=== PATIENT | male | born 1940 | race Caucasian/White ===

== ENCOUNTER 2021-05-20 08:19 | Inpatient (IN) | payer MEDICARE ==
[~2021-05-20] VITALS: Ht 172.7 cm; Wt 99.5 kg
--- NOTE | 2021-05-20 08:42 | PHYS DOC ---
Past Medical History Past Medical History: CAD, Diabetes-Type II, High Cholesterol, Heart Disease, Hypertension General Adult EDM: Chief Complaint: CHEST PAIN-CARDIAC NATURE HPI: HPI: Patient is a 80-year-old male presenting via POV for chest discomfort. Reports onset was approximately 2 weeks ago shortly after tooth extraction. Reports he has had generalized "gas pains" that are often substernal and/or over right parasternal border and do not radiate. He has been taking Tums, Motrin and Tylenol intermittently with mild relief in symptoms. Nothing known appears to make worse. Patient denies any nilda pain, just admits he feels "blah", fatigu ed and tired during episodes. Timing of symptoms have been inconsistent since onset but have increased in frequency. Reports in past 48 hours he has had several episodes that have occurred with and without physical exertion. Episodes typically last a few minutes to hours. Last episode was this morning which concerned and daughter and so decision was made to bring in patient for evaluation. Patient does have history of noninsulin-dependent type 2 diabetes, coronary artery disease status post x2 stents placed in 2010, reports last outpatient stress test/echocardiogram was performed a few years ago. He is on 81 mg aspirin daily in addition to other GDMT for his comorbid conditions. No prior history of pulmonary embolism or DVT. Denies tobacco, alcohol or illicit drug use. All of his outpatient care is managed in [place] where he lives permanently Review of Systems: Review of Systems: Fourteen body systems of review of systems have been reviewed. See HPI for pertinent positives and negative responses, other valiente all other systems are negative, non-pertinent or non-contributory Heart Score: C/O Chest Pain: Yes HEART Score for Chest Pain: HEART Score for Chest Pain Response (Comments) Value History Moderately Suspicious 1 ECG Normal 0 Age > 65 2 Risk Factors >3 Risk Factors or Hx CAD 2 Troponin < Normal Limit 0 Total 5 Risk Factors: Risk Factors: DM, Current or recent (<one month) smoker, HTN, HLP, family history of CAD, obesity. Risk Scores: Score 0 - 3: 2.5% MACE over next 6 weeks - Discharge Home Score 4 - 6: 20.3% MACE over next 6 weeks - Admit for Clinical Observation Score 7 - 10: 72.7% MACE over next 6 weeks - Early Invasive Strategies Current Medications: Current Medications Medications (Trade) Dose Ordered Sig/Darrin Start Time Stop Time Status Last Admin Dose Admin Aspirin (Aspirin Chewable) 162 mg 1X ONCE 05/20/21 09:00 05/20/21 09:01 DC 05/20/21 08:42 Multi-Ingredient Mouthwash/Gargle (Gi Cocktail) 20 ml 1X ONCE 05/20/21 09:00 05/20/21 09:06 DC 05/20/21 09:01 Nitroglycerin (Nitrostat) 0.4 mg PRN Q5MIN PRN 05/20/21 08:45 05/21/21 08:44 05/20/21 08:50 Sodium Chloride 500 ml @ 500 mls/hr 1X ONCE 05/20/21 09:00 05/20/21 09:59 DC 05/20/21 09:05 Allergies: Allergies: Allergies Coded Allergies Type Severity Reaction Last Updated Verified No Known Drug Allergies 05/20/21 No Physical Exam: PE: Constitutional: Well developed, well nourished, no acute distress, non-toxic appearance. HENT: Normocephalic, atraumatic, bilateral external ears normal, oropharynx moist, no oral exudates, nose normal. Hard of hearing Eyes: PERRLA, EOMI, conjunctiva normal, no discharge. Neck: Normal range of motion, no tenderness, supple, no stridor. Cardiovascular: Heart rate regular per monitor Lungs & Thorax: No respiratory distress or accessory muscle use, bilateral chest rise Abdomen: Abdomen soft, non-tender, bowel sounds present in all quadrants, no guarding or rebound, nonacute abdomen. Skin: Warm, dry, no erythema, no rash. Back: No tenderness, no CVA tenderness. Extremities: No tenderness, no cyanosis, no clubbing, ROM intact, no edema. Neurologic: Alert and oriented X 3, grossly normal motor & sensory function, no focal deficits noted. Psychologic: Affect normal, judgement normal, mood normal. Current Patient Data: Labs: Laboratory Tests Test 05/20/21 08:28 White Blood Count 9.0 x10^3/uL Red Blood Count 4.88 x10^6/uL Hemoglobin 15.1 g/dL Hematocrit 43.5 % Mean Corpuscular Volume 89 fL Mean Corpuscular Hemoglobin 31 pg Mean Corpuscular Hemoglobin Concent 35 g/dL Red Cell Distribution Width 13.8 % Platelet Count 198 x10^3/uL Neutrophils (%) (Auto) 71 % Lymphocytes (%) (Auto) 14 % Monocytes (%) (Auto) 8 % Eosinophils (%) (Auto) 6 % Basophils (%) (Auto) 2 % Neutrophils # (Auto) 6.3 x10^3/uL Lymphocytes # (Auto) 1.3 x10^3/uL Monocytes # (Auto) 0.7 x10^3/uL Eosinophils # (Auto) 0.5 x10^3/uL Basophils # (Auto) 0.1 x10^3/uL D-Dimer (Roslyn) 0.29 ug/mlFEU Sodium Level 144 mmol/L Potassium Level 3.9 mmol/L Chloride Level 104 mmol/L Carbon Dioxide Level 30 mmol/L Anion Gap 10 Blood Urea Nitrogen 27 mg/dL Creatinine 1.4 mg/dL Estimated GFR (Cockcroft-Gault) 48.9 Glucose Level 148 mg/dL Calcium Level 9.1 mg/dL Troponin I Quantitative < 0.017 ng/mL PN-Aui-Q-Type Natriuretic Peptide 97 pg/mL Current Medications Medications (Trade) Dose Ordered Sig/Darrin Route PRN Reason Start Time Stop Time Status Last Admin Dose Admin Aspirin (Aspirin Chewable) 162 mg 1X ONCE PO 05/20/21 09:00 05/20/21 09:01 DC 05/20/21 08:42 Nitroglycerin (Nitrostat) 0.4 mg PRN Q5MIN PRN SL CP RATING > 1/10 05/20/21 08:45 05/21/21 08:44 05/20/21 08:50 Multi-Ingredient Mouthwash/Gargle (Gi Cocktail) 20 ml STK-MED ONCE .ROUTE 05/20/21 08:56 05/20/21 08:56 DC Multi-Ingredient Mouthwash/Gargle (Gi Cocktail) 20 ml 1X ONCE SWSW 05/20/21 09:00 05/20/21 09:06 DC 05/20/21 09:01 Sodium Chloride 500 ml @ 500 mls/hr 1X ONCE IV 05/20/21 09:00 05/20/21 09:59 DC 05/20/21 09:05 Vital Signs: Vital Signs Date Time Temp Pulse Resp B/P (MAP) Pulse Ox O2 Delivery O2 Flow Rate FiO2 05/20/21 08:34 96.8 66 20 174/87 (116) 98 Room Air 96.8 Vital Signs Date Time Temp Pulse Resp B/P (MAP) Pulse Ox O2 Delivery O2 Flow Rate FiO2 05/20/21 08:50 64 117/63 05/20/21 08:34 96.8 20 98 Room Air 96.8 EKG: EKG: EKG ordered and interpreted by myself 0825 hrs. as sinus rhythm at 66 bpm, unremarkable intervals, left axis deviation, no acute ischemic findings, no STEMI Repeat EKG ordered and interpreted by myself at 0911 hrs. as sinus rhythm at 64 bpm, unremarkable intervals, no axis deviation, no acute ischemic findings, no STEMI Radiology/Procedures: Radiology/Procedures: XR CHEST 1V History: Reason: CHEST PAIN / Spl. Instructions: / History: Comparison: None. Findings: Low lung volumes. Linear mid and bibasilar opacities. No pleural effusion. No pneumothorax. Normal heart size. Impression: 1. Low lung volumes with linear mid and bibasilar opacities, likely atelectasis. Electronically signed by: Nolan Enriquez DO (05/20/2021 9:22 AM) [id number] Course & Med Decision Making: Course & Med Decision Making Airway patent, breathing unlabored, IV access and vitals obtained concerning for hypertension only HPI, physical examination and ER work-up nonconcerning for emergent or surgical issues With aspirin given in ER, a total of x3 81 mg aspirin given today. Patient voiced episode of chest discomfort in ER and X2 sublingual nitro administered with improvement in blood pressure but no change in chest discomfort. GI cocktail subsequently given without noticeable effect on pain Patient's chest discomfort self resolved while in ER after approximately 30 minutes. I reviewed entirety of ER work-up and discuss next steps of care. I reviewed HEART score and patient significant cardiac history and risk of adverse cardiac events if discharged home I contacted hospitalist and reviewed need for hospital admission for cardiac observation, patient was excepted for admission I updated patient and at bedside on plan for admission and they were amenable. All questions and concerns addressed prior to admission. They confirm he is full CODE STATUS at this time Melisa Disclaimer: Dragnia Disclaimer: This electronic medical record was generated, in whole or in part, using a voice recognition dictation system. Departure Departure Impression: Primary Impression: Chest pain, rule out acute myocardial infarction Additional Impressions: CAD (coronary artery disease) Non-insulin dependent type 2 diabetes mellitus Disposition: ADMITTED INPATIENT Admitting Physician: FLORECITA (dr jones) Condition: STABLE ASHELY TAPIA DO May 20, 2021 08:42
[2021-05-20] MEDS: NITROGLYCERIN SUBLINGUAL 0.4 MG BOTTLE OF 25. SL PRN ×2 (08:43→08:50)
[2021-05-20 08:44] LABS: BASO # 0.1 x10^3/uL (0.0-0.2); BASO % 2 % (0-3); EOS # 0.5 x10^3/uL (0.0-0.7); EOS % 6 % (0-3); HEMATOCRIT 43.5 % (39.0-53.0); HEMOGLOBIN 15.1 g/dL (13.0-17.5); LYMPH # 1.3 x10^3/uL (1.0-4.8); LYMPH % 14 % (24-48); MEAN CORPUSCULAR HEMOGLOBIN 31 pg (25-35); MEAN CORPUSCULAR HGB CONC 35 g/dL (31-37); MEAN CORPUSCULAR VOLUME 89 fL (79-100); MONO # 0.7 x10^3/uL (0.0-1.1); MONO % 8 % (0-9); NEUT # 6.3 x10^3/uL (1.8-7.7); NEUT % 71 % (31-73); PLATELET COUNT 198 x10^3/uL (140-400); RED BLOOD COUNT 4.88 x10^6/uL (4.30-5.70); RED CELL DISTRIBUTION WIDTH 13.8 % (11.5-14.5)
--- NOTE | 2021-05-20 08:46 | EKG ---
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
[2021-05-20 08:54] LABS: CALCIUM 9.1 mg/dL (8.5-10.1); CREATININE 1.4 mg/dL (0.7-1.3); GFR 48.9; POTASSIUM 3.9 mmol/L (3.5-5.1)
[2021-05-20] MEDS ORDERED: LIDO:MAALOX 1:1 20 ML SINGLE DOSE. ONE (08:56)
[2021-05-20] MEDS ORDERED: LIDO:MAALOX 1:1 20 ML SINGLE DOSE. SWSW ONE (09:00)
[2021-05-20] MEDS ORDERED: ASPIRIN CHEWABLE 81 MG TABLET. PO ONE (09:00)
[2021-05-20] MEDS ORDERED: IV NORMAL SALINE 500ML BAG 500 ML IV ONE (09:00)
--- NOTE | 2021-05-20 09:25 | RAD ---
XR CHEST 1V History: Reason: CHEST PAIN / Spl. Instructions: / History: Comparison: None. Findings: Low lung volumes. Linear mid and bibasilar opacities. No pleural effusion. No pneumothorax. Normal he art size. Impression: 1. Low lung volumes with linear mid and bibasilar opacities, likely atelectasis. Electronically signed by: Nolan Enriquez DO (05/20/2021 9:22 AM) [id number]
--- NOTE | 2021-05-20 09:48 | EKG ---
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
[2021-05-20] MEDS ORDERED: ACETAMINOPHEN 325 MG TABLET. PO PRN ×2 (10:30→11:30)
[2021-05-20] MEDS ORDERED: NITROGLYCERIN SUBLINGUAL 0.4 MG BOTTLE OF 25. SL PRN ×2 (10:30→11:30)
[2021-05-20] MEDS ORDERED: ONDANSETRON PF 4 MG/2 ML VIAL. IV PRN (10:30)
--- NOTE | 2021-05-20 10:43 | PDOC1 ---
History and Physical Date of Admission Date of Admission DATE: 05/20/21 TIME: 10:43 Identification/Chief Complaint Chief Complaint Chest pain Source Source: Chart review, Patient History of Present Illness History of Present Illness Patient 80-year-old male with past medical history CAD with stents, DM2 HTN, HDL, presents to the ED with complaints of intermittent substernal chest pain x 2 weeks. States his pain worsened over the past 72 hours and reports pain 5/10, that he states feels like "gas". At home he had taken Tums, Motrin, and Tylenol without improvement. He denies any significant aggravating or alleviating factors. Labs on admission showed BUN 27, creatinine 1.4, troponin <0.017. Chest x-ray showed likely atelectasis; EKG was reviewed and largely unremarkable. Due to significant risk factors will admit patient for further medical management. Past Medical History Past Medical History CAD, HTN, HLD, DM2 Past Surgical History Past Surgical History Cardiac stents x2, carpal tunnel x2, hernia repair Family History Family History CAD Social History Smoke: Quit ALCOHOL: social Drugs: None Current Problem List Problem List Problems Medical Problems: (1) CAD (coronary artery disease) Status: Acute (2) Chest pain, rule out acute myocardial infarction Status: Acute (3) Non-insulin dependent type 2 diabetes mellitus Status: Acute Current Medications Current Medications Current Medications Aspirin (Aspirin Chewable) 162 mg 1X ONCE PO Last administered on 05/20/21at 08:42; Start 05/20/21 at 09:00; Stop 05/20/21 at 09:01; Status DC Nitroglycerin (Nitrostat) 0.4 mg PRN Q5MIN PRN SL CP RATING > 1/10 Last administered on 05/20/21at 08:50; Start 05/20/21 at 08:45; Stop 05/21/21 at 08:44 Multi-Ingredient Mouthwash/Gargle (Gi Cocktail) 20 ml STK-MED ONCE .ROUTE ; Start 05/20/21 at 08:56; Stop 05/20/21 at 08:56; Status DC Multi-Ingredient Mouthwash/Gargle (Gi Cocktail) 20 ml 1X ONCE SWSW Last administered on 05/20/21at 09:01; Start 05/20/21 at 09:00; Stop 05/20/21 at 09:06; Status DC Sodium Chloride 500 ml @ 500 mls/hr 1X ONCE IV Last administered on 05/20/21at 09:05; Start 05/20/21 at 09:00; Stop 05/20/21 at 09:59; Status DC Ondansetron HCl (Zofran) 4 mg PRN Q8HRS PRN IV NAUSEA/VOMITING; Start 05/20/21 at 10:30; Stop 05/21/21 at 10:29 Acetaminophen (Tylenol) 650 mg PRN Q4HRS PRN PO FEVER > 100.3'F; Start 05/20/21 at 10:30; Stop 05/21/21 at 10:29 Nitroglycerin (Nitrostat) 0.4 mg PRN Q5MIN PRN SL CHEST PAIN; Start 05/20/21 at 10:30; Stop 05/21/21 at 10:29 Allergies Allergies: Coded Allergies: No Known Drug Allergies (Unverified , 05/20/21) ROS Review of System GENERAL: No history of weight change, weakness or fevers. SKIN: No bruising, hair changes or rashes. EYES: No blurred, double or loss of vision. NOSE AND THROAT: No history of nosebleeds, hoarseness or sore throat. HEART: Chest pain. Denies palpitations. LUNGS: Denies cough, hemoptysis, wheezing or shortness of breath. GASTROINTESTINAL: Denies nausea, vomiting, abdominal pain. GENITOURINARY: Denies dysuria, frequency, urgency, hematuria. NEUROLOGIC: Denies history of numbness, tingling, tremor or weakness. PSYCHIATRIC: Denies anxiety, denies depression. ENDOCRINE: No history of heat or cold intolerance, polyuria or polydipsia. EXTREMITIES: Denies muscle weakness, joint pain, pain on walking or stiffness. Physical Exam Physical Exam General: Alert, Oriented X3, Cooperative, No acute distress HEENT: PERRLA, EOMI, hearing impaired Lungs: Clear to auscultation, Normal air movement Heart: RRR, no murmurs Cardiovascular: S1, S2 Abdomen: Normal bowel sounds, Soft, No tenderness Extremities: No clubbing, No cyanosis Skin: No rashes, No significant lesion Neuro: Normal speech, Normal tone, Sensation intact Psych/Mental Status: Mental status NL, Mood NL Vitals Vitals Vital Signs Date Time Temp Pulse Resp B/P (MAP) Pulse Ox O2 Delivery O2 Flow Rate FiO2 05/20/21 09:23 56 14 117/61 (79) 98 Nasal Cannula 2.0 05/20/21 08:34 96.8 96.8 Labs Labs Laboratory Tests Test 05/20/21 08:28 White Blood Count 9.0 x10^3/uL (4.0-11.0) Red Blood Count 4.88 x10^6/uL (4.30-5.70) Hemoglobin 15.1 g/dL (13.0-17.5) Hematocrit 43.5 % (39.0-53.0) Mean Corpuscular Volume 89 fL (79-100) Mean Corpuscular Hemoglobin 31 pg (25-35) Mean Corpuscular Hemoglobin Concent 35 g/dL (31-37) Red Cell Distribution Width 13.8 % (11.5-14.5) Platelet Count 198 x10^3/uL (140-400) Neutrophils (%) (Auto) 71 % (31-73) Lymphocytes (%) (Auto) 14 % (24-48) Monocytes (%) (Auto) 8 % (0-9) Eosinophils (%) (Auto) 6 % (0-3) Basophils (%) (Auto) 2 % (0-3) Neutrophils # (Auto) 6.3 x10^3/uL (1.8-7.7) Lymphocytes # (Auto) 1.3 x10^3/uL (1.0-4.8) Monocytes # (Auto) 0.7 x10^3/uL (0.0-1.1) Eosinophils # (Auto) 0.5 x10^3/uL (0.0-0.7) Basophils # (Auto) 0.1 x10^3/uL (0.0-0.2) D-Dimer (Roslyn) 0.29 ug/mlFEU (0.00-0.50) Sodium Level 144 mmol/L (136-145) Potassium Level 3.9 mmol/L (3.5-5.1) Chloride Level 104 mmol/L (98-107) Carbon Dioxide Level 30 mmol/L (21-32) Anion Gap 10 (6-14) Blood Urea Nitrogen 27 mg/dL (8-26) Creatinine 1.4 mg/dL (0.7-1.3) Estimated GFR (Cockcroft-Gault) 48.9 Glucose Level 148 mg/dL (70-99) Calcium Level 9.1 mg/dL (8.5-10.1) Troponin I Quantitative < 0.017 ng/mL (0.000-0.055) YS-Cvv-E-Type Natriuretic Peptide 97 pg/mL (0-449) Laboratory Tests Test 05/20/21 08:28 White Blood Count 9.0 x10^3/uL (4.0-11.0) Red Blood Count 4.88 x10^6/uL (4.30-5.70) Hemoglobin 15.1 g/dL (13.0-17.5) Hematocrit 43.5 % (39.0-53.0) Mean Corpuscular Volume 89 fL (79-100) Mean Corpuscular Hemoglobin 31 pg (25-35) Mean Corpuscular Hemoglobin Concent 35 g/dL (31-37) Red Cell Distribution Width 13.8 % (11.5-14.5) Platelet Count 198 x10^3/uL (140-400) Neutrophils (%) (Auto) 71 % (31-73) Lymphocytes (%) (Auto) 14 % (24-48) Monocytes (%) (Auto) 8 % (0-9) Eosinophils (%) (Auto) 6 % (0-3) Basophils (%) (Auto) 2 % (0-3) Neutrophils # (Auto) 6.3 x10^3/uL (1.8-7.7) Lymphocytes # (Auto) 1.3 x10^3/uL (1.0-4.8) Monocytes # (Auto) 0.7 x10^3/uL (0.0-1.1) Eosinophils # (Auto) 0.5 x10^3/uL (0.0-0.7) Basophils # (Auto) 0.1 x10^3/uL (0.0-0.2) D-Dimer (Roslyn) 0.29 ug/mlFEU (0.00-0.50) Sodium Level 144 mmol/L (136-145) Potassium Level 3.9 mmol/L (3.5-5.1) Chloride Level 104 mmol/L (98-107) Carbon Dioxide Level 30 mmol/L (21-32) Anion Gap 10 (6-14) Blood Urea Nitrogen 27 mg/dL (8-26) Creatinine 1.4 mg/dL (0.7-1.3) Estimated GFR (Cockcroft-Gault) 48.9 Glucose Level 148 mg/dL (70-99) Calcium Level 9.1 mg/dL (8.5-10.1) Troponin I Quantitative < 0.017 ng/mL (0.000-0.055) TU-Gkj-G-Type Natriuretic Peptide 97 pg/mL (0-449) Images Images PATIENT: TORRYE NOLEN ACCOUNT: [id number] : 1940 LOCATION: ER AGE: 80 SEX: M EXAM STATUS: REG ER ORD. PHYSICIAN: ASHELY TAPIA DO REASON: CHEST PAIN PROCEDURE: PORTABLE CHEST 1V XR CHEST 1V History: Reason: CHEST PAIN / Spl. Instructions: / History: Comparison: None. Findings: Low lung volumes. Linear mid and bibasilar opacities. No pleural effusion. No pneumothorax. Normal heart size. Impression: 1. Low lung volumes with linear mid and bibasilar opacities, likely atelec tasis. VTE Prophylaxis Ordered VTE Prophylaxis Devices: No VTE Pharmacological Prophylaxi: Yes Assessment/Plan Assessment/Plan Unstable angina CAD JENIFER vs CKD HTN HLD DM2 Plan: Initial troponin <0.017; will continue to trend Consultation placed to cardiology Will obtain echocardiogram He did receive normal saline in the ED; will continue to monitor kidney function. Resume home medications FEN - Cardiac diet PPX - Heparin FULL CODE Dispo - inpatient for above Advance Care Planning: Total time spent [id number] with patient 16 minutes in discussion with goals of care, comfort care, end-of-life care, pain management, code status; patient names his (Eva Nolen) as surrogate decision-maker. Justifications for Admission Other Justification EVERETTE POLANCO MD May 20, 2021 10:43
[2021-05-20 11:30] VITALS: BP 137/73
[2021-05-20] MEDS ORDERED: ZOLPIDEM 5 MG TABLET. PO PRN (11:30)
[2021-05-20] MEDS ORDERED: MORPHINE SULFATE 4 MG/ML INJ. IV PRN (11:30)
[2021-05-20] MEDS ORDERED: MAGNESIUM HYDROXIDE 2,400 MG/30 ML ORAL.SUSP. PO PRN (11:30)
[2021-05-20] MEDS ORDERED: LIDO:MAALOX 1:1 20 ML SINGLE DOSE. PO PRN (11:30)
[2021-05-20] MEDS ORDERED: CALCIUM CARBONATE 500 MG TAB.CHEW PO PRN (11:30)
[2021-05-20] MEDS ORDERED: ONDANSETRON PF 4 MG/2 ML VIAL. IVP PRN (11:30)
[2021-05-20] MEDS ORDERED: MAG HYDROX/ALUMINUM HYD/SIMETH 30 ML ORAL.SUSP PO PRN (11:30)
[2021-05-20] MEDS ORDERED: HYDROcodone/APAP 5/325MG 1 TAB TABLET PO PRN (11:30)
[2021-05-20] MEDS ORDERED: METO-239 PO (13:29)
[2021-05-20] MEDS ORDERED: COFF1CAP2 PO (13:29)
[2021-05-20] MEDS ORDERED: NAPR220C4 PO (13:29)
[2021-05-20] MEDS ORDERED: GABA600T7 PO (13:29)
[2021-05-20] MEDS ORDERED: METF500T16 PO (13:29)
[2021-05-20] MEDS ORDERED: PREG200C PO (13:29)
[2021-05-20] MEDS ORDERED: LOSA1TAB22 PO (13:29)
[2021-05-20] MEDS ORDERED: VITA1TAB19 PO (13:29)
[2021-05-20] MEDS ORDERED: CHOL5000 PO (13:29)
[2021-05-20] MEDS ORDERED: MULT-246 PO (13:29)
[2021-05-20] MEDS ORDERED: FLUT9.9S NS (13:29)
[2021-05-20] MEDS ORDERED: EZET1TAB30 PO (13:29)
[2021-05-20] MEDS ORDERED: ASPI81TA59 PO (13:29)
[2021-05-20] MEDS ORDERED: NAPROXEN 250 MG TABLET PO PRN (13:45)
[2021-05-20] MEDS: SIMVASTATIN 20 MG TABLET PO SCH (14:00)
[2021-05-20] MEDS: CHOLECALCIFEROL (VITAMIN D3) 5,000 UNIT CAPSULE PO SCH (14:00)
[2021-05-20] MEDS: hydroCHLOROthiazide 25 MG TABLET PO SCH (14:00)
[2021-05-20] MEDS: VITAMIN B COMPLEX TABLET. PO SCH (14:00)
[2021-05-20] MEDS: MULTIVITAMIN with MINERAL TABLET. PO SCH (14:00)
[2021-05-20] MEDS ORDERED: ASPIRIN CHEWABLE 81 MG TABLET. PO SCH (14:00)
[2021-05-20] MEDS: EZETIMIBE 10 MG TABLET. PO SCH (14:00)
[2021-05-20] MEDS: METOPROLOL SUCC 24HR ER 50 MG TAB.ER.24H. PO SCH (14:00)
[2021-05-20] MEDS: LOSARTAN POTASSIUM 50 MG TABLET. PO SCH (14:00)
[2021-05-20 15:00] VITALS: BP 126/71
[2021-05-20 15:12] LABS: CHOLESTEROL/HDL RATIO 2.6
[2021-05-20 19:36] VITALS: BP 122/62
--- NOTE | 2021-05-20 20:19 | PDOC2 ---
CARDIOLOGY CONSULT NOTE DATE OF SERVICE: DATE: 05/20/21 TIME: 20:15 CHIEF COMPLAINT: Epigastric discomfort HPI: Mr. Nolen is a pleasant 80-year-old man with a past medical history as noted below who presented to the hospital with intermittent epigastric discomfort. At baseline he is able to perform all activities of daily living without any significant limitations but according to him and his daughter he has had some atypical chest pain over the last several days. Previously when he had his stent in 2010 it felt like an elephant sitting on his chest but this current pain appears to be mostly epigastric and discomfort and is not alleviated or relieved with any interventions. He does not have any exacerbation with diet and he did take some Tums which she reports that mildly improved his symptoms. He denies any syncope or palpitations. I had a discussion with his daughter as well regarding his symptoms and there was some concern that about a week or 2 ago when he was working in the yard he was having some chest discomfort and therefore due to his significant cardiac history and this discomfort he was advised to come to the hospital. Upon arrival to the hospital in the ER he was noted to have fairly normal vital signs. Work-up including an EKG and biomarkers were unremarkable. He was admitted for further evaluation and treatment. Currently in the room he denies any other acute problems. PMHX: 1. Coronary artery disease status post PCI in 2010 2. Hypertension 3. Dyslipidemia 4. Type 2 diabetes SOCHX: Patient is . He lives mostly in [place] for 7 or 8 months and lives in [facility] in [place] for the remainder of the year. He denies any alcohol, tobacco or illicit drug use. His daughter works here at [facility]. FAMHX: Noncontributory CURRENT MEDS: Aspirin, simvastatin, metoprolol, Zetia and losartan ALLERGIES: Allergies Coded Allergies Type Severity Reaction Last Updated Verified No Known Drug Allergies 05/20/21 No ROS: Negative for 10 out of 14 systems reviewed unless otherwise mentioned above in HPI PHYSICAL EXAM: Vital Signs/I&O: Vital Signs Date Time Temp Pulse Resp B/P (MAP) Pulse Ox O2 Delivery O2 Flow Rate FiO2 05/20/21 19:36 98.5 70 18 122/62 (82) 94 Room Air 98.5 05/20/21 09:38 2.0 Physical Exam: GEN.: No apparent distress. Alert and oriented. HEENT: Head is normocephalic, atraumatic NECK: Supple. LUNGS: Clear to auscultation. HEART: RRR, S1, S2 present. Peripheral pulses intact ABDOMEN: Soft, nontender. Positive bowel sounds. EXTREMITIES: Without any cyanosis. NEUROLOGIC: Normal speech, normal tone PSYCHIATRIC: Normal affect, normal mood. SKIN: No ulcerations DIAGNOSTIC TESTING: EKG is unremarkable Cardiac biomarkers are negative Chest x-ray is unremarkable ASSESSMENT: 1. Atypical chest pain 2. Known history of coronary artery disease status post PCI remotely with last stress test approximately 4 to 5 years ago in [place] 3. Hypertension 4. Dyslipidemia 5. Type 2 diabetes PLAN: 1. He has a fairly low risk presentation with atypical symptoms, normal EKG and cardiac biomarkers. 2. We will plan for an echocardiogram tomorrow and if this is unremarkable then he can be discharged with plans for outpatient stress testing. 3. Start on PPI therapy and see if this helps with his symptoms.. 4. Discussed plan with the patient and his daughter. Thank you for this consultation. TABBY FIERRO MD May 20, 2021 20:19
[2021-05-20] MEDS: HEPARIN for SUB-Q USE 5,000 UNIT/ML VIAL. SQ SCH (20:48)
[2021-05-20] MEDS ORDERED: PREGABALIN 50 MG CAPSULE PO SCH (21:00)
[2021-05-20] MEDS ORDERED: GABAPENTIN 300 MG CAPSULE. PO SCH (21:00)
[2021-05-20] MEDS ORDERED: PREGABALIN 75 MG CAPSULE PO SCH (21:00)
[2021-05-20 22:41] VITALS: BP 127/65
[2021-05-21 02:55] VITALS: BP 125/75
[2021-05-21 07:00] VITALS: BP 130/83
[2021-05-21 07:41] LABS: CREATININE 1.4 mg/dL (0.7-1.3); GFR 48.9; POTASSIUM 4.1 mmol/L (3.5-5.1)
--- NOTE | 2021-05-21 08:02 | PDOC ---
[employer] PROGRESS NOTE Date of Service DOS: DATE: 05/21/21 TIME: 07:59 Chief Complaint Chief Complaint Unstable angina CAD JENIFER vs CKD HTN HLD DM2 Plan: Initial troponin <0.017; will continue to trend Consultation placed to cardiology Will obtain echocardiogram He did receive normal saline in the ED; will continue to monitor kidney function. Resume home medications FEN - Cardiac diet PPX - Heparin FULL CODE Dispo - inpatient for above Advance Care Planning: Total time spent bqlp-py-itnu with patient 16 minutes in discussion with goals of care, comfort care, end-of-life care, pain management, code status; patient names his (Eva Nolen) as surrogate decision-maker. History of Present Illness History of Present Illness Patient 80-year-old male with past medical history CAD with stents, DM2 HTN, HDL, presents to the ED with complaints of intermittent substernal chest pain x 2 weeks. States his pain worsened over the past 72 hours and reports pain 5/10, that he states feels like "gas". At home he had taken Tums, Motrin, and Tylenol without improvement. He denies any significant aggravating or alleviating factors. Labs on admission showed BUN 27, creatinine 1.4, troponin <0.017. Chest x-ray showed likely atelectasis; EKG was reviewed and largely unremarkable. Due to significant risk factors will admit patient for further medical management. 05/21/2021: Afebrile. Troponins trended and have been <0.017 x 4. Echocardiogram showed normal left ventricular systolic function, normal left ventricular segmental wall motion, ejection fraction within normal range, 50-55%. Per cardiology, he can be discharged home with plans for outpatient stress test. Greater than 30 minutes spent managing discharge this patient. Vitals/I&O Vitals/I&O: Vital Signs Date Time Temp Pulse Resp B/P (MAP) Pulse Ox O2 Delivery O2 Flow Rate FiO2 05/21/21 02:55 97.6 66 18 125/75 (92) 96 Room Air 97.6 05/20/21 09:38 2.0 I & O 05/20/21 05/20/21 05/21/21 15:00 23:00 07:00 Intake Total 500 ml 540 ml 0 ml Output Total 100 ml Balance 500 ml 440 ml 0 ml Physical Exam General: Alert, Oriented X3, Cooperative, No acute distress Heart: Regular rate Lungs: Clear Abdomen: Soft, No tenderness Extremities: No clubbing, No cyanosis Skin: No rashes, No breakdown Labs Labs: Laboratory Tests Test 05/20/21 08:28 05/20/21 11:50 05/20/21 14:15 05/20/21 18:45 White Blood Count 9.0 x10^3/uL (4.0-11.0) Red Blood Count 4.88 x10^6/uL (4.30-5.70) Hemoglobin 15.1 g/dL (13.0-17.5) Hematocrit 43.5 % (39.0-53.0) Mean Corpuscular Volume 89 fL (79-100) Mean Corpuscular Hemoglobin 31 pg (25-35) Mean Corpuscular Hemoglobin Concent 35 g/dL (31-37) Red Cell Distribution Width 13.8 % (11.5-14.5) Platelet Count 198 x10^3/uL (140-400) Neutrophils (%) (Auto) 71 % (31-73) Lymphocytes (%) (Auto) 14 % (24-48) Monocytes (%) (Auto) 8 % (0-9) Eosinophils (%) (Auto) 6 % (0-3) Basophils (%) (Auto) 2 % (0-3) Neutrophils # (Auto) 6.3 x10^3/uL (1.8-7.7) Lymphocytes # (Auto) 1.3 x10^3/uL (1.0-4.8) Monocytes # (Auto) 0.7 x10^3/uL (0.0-1.1) Eosinophils # (Auto) 0.5 x10^3/uL (0.0-0.7) Basophils # (Auto) 0.1 x10^3/uL (0.0-0.2) D-Dimer (Roslyn) 0.29 ug/mlFEU (0.00-0.50) Sodium Level 144 mmol/L (136-145) Potassium Level 3.9 mmol/L (3.5-5.1) Chloride Level 104 mmol/L (98-107) Carbon Dioxide Level 30 mmol/L (21-32) Anion Gap 10 (6-14) Blood Urea Nitrogen 27 mg/dL (8-26) Creatinine 1.4 mg/dL (0.7-1.3) Estimated GFR (Cockcroft-Gault) 48.9 Glucose Level 148 mg/dL (70-99) Calcium Level 9.1 mg/dL (8.5-10.1) Troponin I Quantitative < 0.017 ng/mL (0.000-0.055) < 0.017 ng/mL (0.000-0.055) < 0.017 ng/mL (0.000-0.055) < 0.017 ng/mL (0.000-0.055) MK-Sao-L-Type Natriuretic Peptide 97 pg/mL (0-449) Triglycerides Level 149 mg/dL (0-150) Cholesterol Level 111 mg/dL (0-200) LDL Cholesterol, Calculated 39 mg/dL (0-100) VLDL Cholesterol, Calculated 30 mg/dL (0-40) Non-HDL Cholesterol Calculated 69 mg/dL (0-129) HDL Cholesterol 42 mg/dL (40-60) Cholesterol/HDL Ratio 2.6 Test 05/21/21 00:20 05/21/21 06:45 Troponin I Quantitative < 0.017 ng/mL (0.000-0.055) Sodium Level 143 mmol/L (136-145) Potassium Level 4.1 mmol/L (3.5-5.1) Chloride Level 106 mmol/L (98-107) Carbon Dioxide Level 31 mmol/L (21-32) Anion Gap 6 (6-14) Blood Urea Nitrogen 26 mg/dL (8-26) Creatinine 1.4 mg/dL (0.7-1.3) Estimated GFR (Cockcroft-Gault) 48.9 Glucose Level 129 mg/dL (70-99) Calcium Level 9.0 mg/dL (8.5-10.1) Assessment and Plan Assessmemt and Plan Problems Medical Problems: (1) CAD (coronary artery disease) Status: Acute (2) Chest pain, rule out acute myocardial infarction Status: Acute (3) Non-insulin dependent type 2 diabetes mellitus Status: Acute Comment Review of Relevant I have reviewed the following items latasha (where applicable) has been applied. Medications: Current Medications Medications (Trade) Dose Ordered Sig/Darrin Route PRN Reason Start Time Stop Time Status Last Admin Dose Admin Aspirin (Aspirin Chewable) 162 mg 1X ONCE PO 05/20/21 09:00 05/20/21 09:01 DC 05/20/21 08:42 Nitroglycerin (Nitrostat) 0.4 mg PRN Q5MIN PRN SL CP RATING > 1/10 05/20/21 08:45 05/20/21 11:39 DC 05/20/21 08:50 Multi-Ingredient Mouthwash/Gargle (Gi Cocktail) 20 ml 1X ONCE SWSW 05/20/21 09:00 05/20/21 09:06 DC 05/20/21 09:01 Sodium Chloride 500 ml @ 500 mls/hr 1X ONCE IV 05/20/21 09:00 05/20/21 09:59 DC 05/20/21 09:05 Calcium Carbonate/ Glycine (Tums) 500 mg PRN Q3HRS PRN PO UPSET STOMACH 05/20/21 11:30 05/20/21 20:48 Heparin Sodium (Porcine) (Heparin Sodium) 5,000 unit Q12HR SQ 05/20/21 21:00 05/20/21 20:48 Gabapentin (Neurontin) 600 mg HS PO 05/20/21 21:00 05/20/21 20:42 Pregabalin (Lyrica) 450 mg HS PO 05/20/21 21:00 05/20/21 20:41 Pregabalin (Lyrica) 50 mg HS PO 05/20/21 21:00 05/20/21 20:42 Justifications for Admission Other Justification EVERETTE POLANCO MD May 21, 2021 08:02
[2021-05-21] MEDS: LOSARTAN POTASSIUM 50 MG TABLET. PO SCH (08:50)
[2021-05-21] MEDS: VITAMIN B COMPLEX TABLET. PO SCH (08:50)
[2021-05-21] MEDS: hydroCHLOROthiazide 25 MG TABLET PO SCH (08:50)
[2021-05-21] MEDS: MULTIVITAMIN with MINERAL TABLET. PO SCH (08:50)
[2021-05-21] MEDS: CHOLECALCIFEROL (VITAMIN D3) 5,000 UNIT CAPSULE PO SCH (08:51)
[2021-05-21] MEDS: METOPROLOL SUCC 24HR ER 50 MG TAB.ER.24H. PO SCH (08:51)
[2021-05-21] MEDS: SIMVASTATIN 20 MG TABLET PO SCH (08:51)
[2021-05-21] MEDS: EZETIMIBE 10 MG TABLET. PO SCH (08:51)
[2021-05-21] MEDS: HEPARIN for SUB-Q USE 5,000 UNIT/ML VIAL. SQ SCH (08:55)
[2021-05-21] MEDS ORDERED: FLUTICASONE 50MCG/NASAL SPRAY 16GM BOTTLE. NS SCH (09:00)
[2021-05-21] MEDS ORDERED: ASPIRIN CHEWABLE 81 MG TABLET. PO SCH (09:00)
--- NOTE | 2021-05-21 10:11 | CARD ---
MR#: [id number] Date of Study: 05/21/2021 Ordering Physician: EVERETTE POLANCO, Referring Physician: EVERETTE POLANCO, Tech: Carleen Vasquez BARBARA APPROVED REPORT EXAM: Two-dimensional and M-mode echocardiogram with Doppler and color Doppler. Other Information Quality : AverageHR: 60bpm Rhythm : NSR INDICATION Chest Pain RISK FACTORS Hypertension Obesity Hyperlipidemia 2D DIMENSIONS Left Atrium(2D)4.4 (1.6-4.0cm)IVSd1.1 (0.7-1.1cm) Aortic Root(2D)3.3 (2.0-3.7cm)LVDd4.2 (3.9-5.9cm) LVOT Diameter2.2 (1.8-2.4cm)PWd1.0 (0.7-1.1cm) IVSs1.6 (0.8-1.2cm)LVDs3.0 (2.5-4.0cm) FS (%) 29.3 %PWs1.5 (0.8-1.2cm) SV44.6 mlLVEF(%)56.5 (>50%) Aortic Valve AoV Peak Tavo.106.5cm/sAoV VTI20.3cm AO Peak GR.4.5mmHgLVOT Peak Tavo.90.9cm/s LVOT VTI 22.07cmAO Mean GR.2mmHg ARTURO (VMAX)2.69rx8RZG (VTI)4.13cm2 Mitral Valve MV E Cupscmnb80.5cm/sMV DECEL VAOG089fc MV A Bhkjqlwm92.5cm/sMV COW76aw E/A Ratio0.6MVA (PHT)2.49cm2 TDI E/Lateral E'6.5E/Medial E'9.4 Pulmonary Valve PV Peak Bpgeokkq050.2cm/sPV Peak Grad.8mmHg LEFT VENTRICLE The left ventricle is normal size. There is normal left ventricular wall thickness. The left ventricu lar systolic function is normal and the ejection fraction is within normal range. Estimated ejection fraction 50-55%. There is normal LV segmental wall motion. Transmitral Doppler flow pattern is Grade I-abnormal relaxation pattern. RIGHT VENTRICLE The right ventricle is normal size. There is normal right ventricular wall thickness. The right ventr icular systolic function is normal. ATRIA The left atrium size is normal. The right atrium size is normal. The interatrial septum is intact wit h no evidence for an atrial septal defect or patent foramen ovale as noted on 2-D or Doppler imaging. AORTIC VALVE The aortic valve is normal in structure and function. Doppler and Color Flow revealed no significant aortic regurgitation. There is no significant aortic valvular stenosis. MITRAL VALVE The mitral valve is normal in structure and function. There is no evidence of mitral valve prolapse. There is no mitral valve stenosis. Doppler and Color-flow revealed trace to mild mitral regurgitation . TRICUSPID VALVE The tricuspid valve is normal in structure and function. Doppler and Color Flow revealed no tricuspid valve regurgitation noted. There is no tricuspid valve stenosis. PULMONIC VALVE Doppler and Color Flow revealed no pulmonic valvular regurgitation. There is no pulmonic valvular yann nosis. GREAT VESSELS The aortic root is normal in size. The ascending aorta is normal in size. The IVC is normal in size a nd collapses >50% with inspiration. PERICARDIAL EFFUSION There is no evidence of significant pericardial effusion. Critical Notification Critical Value: No <Conclusion> The left ventricular systolic function is normal and the ejection fraction is within normal range. E stimated ejection fraction 50-55%. There is normal LV segmental wall motion. Signed by : Soy Burgos, Electronically Approved : 05/21/2021 10:11:17
[2021-05-21 11:00] VITALS: BP 117/78
--- NOTE | 2021-05-21 11:33 | PDOC ---
CARDIO Progress Notes Date and Time Date of Service 05/21/21 Time of Evaluation 1120 Subjective Subjective: No Chest Pain, No shortness of breath, No Palpitations, No Dizziness Vitals Vitals Vital Signs Date Time Temp Pulse Resp B/P (MAP) Pulse Ox O2 Delivery O2 Flow Rate FiO2 05/21/21 08:51 68 130/83 05/21/21 08:00 Room Air 05/21/21 07:00 98.6 18 98 98.6 05/20/21 09:38 2.0 Weight Weight [ ] Input and Output Intake and Output Intake and Output 05/21/21 07:00 Intake Total 1040 ml Output Total 100 ml Balance 940 ml Intake Oral 540 ml IV Total 500 ml Output Urine Total 100 ml Laboratory Labs Laboratory Tests Test 05/20/21 11:50 05/20/21 14:15 05/20/21 18:45 05/21/21 00:20 Troponin I Quantitative < 0.017 ng/mL (0.000-0.055) < 0.017 ng/mL (0.000-0.055) < 0.017 ng/mL (0.000-0.055) < 0.017 ng/mL (0.000-0.055) Test 05/21/21 06:45 Sodium Level 143 mmol/L (136-145) Potassium Level 4.1 mmol/L (3.5-5.1) Chloride Level 106 mmol/L (98-107) Carbon Dioxide Level 31 mmol/L (21-32) Anion Gap 6 (6-14) Blood Urea Nitrogen 26 mg/dL (8-26) Creatinine 1.4 mg/dL (0.7-1.3) Estimated GFR (Cockcroft-Gault) 48.9 Glucose Level 129 mg/dL (70-99) Calcium Level 9.0 mg/dL (8.5-10.1) Physical Exam HEENT: Neck Supple W Full Motion Chest: Symmetric LUNGS: Clear to Auscultation Abdomen: Soft N/T Extremities: No Edema, No Calf Tenderness Neurology: alert, oriented, follow commands Assessment Assessment 1. Chest pain, atypical. AMI ruled out. EKG without significant acute changes. Echo with preserved LV systolic function. No WMA 2. CAD s/p remote PCI/stent placement. Last stress test approximately 4 to 5 years ago in [place] 3. Hypertension; controlled 4. Dyslipidemia; statin 5. Diabetes, II Recommendations Secondary prevention measures; continue ASA, statin, BB therapy PPI Outpatient ischemic evaluation with stress test as arranged Okay to discharge from a CV standpoint Justicifation of Admission Dx: Justifications for Admission: Justification of Admission Dx: Yes Comments: Chest pain CAD SRUTHI WALL APRN May 21, 2021 11:33
--- NOTE | 2021-05-21 11:47 | PDOC3 ---
Discharge Summary Visit Information Date of Admission: May 20, 2021 Date of Discharge: May 21, 2021 Final Diagnosis Problems Medical Problems: (1) CAD (coronary artery disease) Status: Acute (2) Chest pain, rule out acute myocardial infarction Status: Acute (3) Non-insulin dependent type 2 diabetes mellitus Status: Acute Brief Hospital Course Allergies Allergies Coded Allergies Type Severity Reaction Last Updated Verified No Known Drug Allergies 05/20/21 No Vital Signs Vital Signs Date Time Temp Pulse Resp B/P (MAP) Pulse Ox O2 Delivery O2 Flow Rate FiO2 05/21/21 11:00 97.9 61 18 117/78 (91) 94 Room Air 97.9 05/20/21 09:38 2.0 Lab Results Laboratory Tests Test 05/20/21 08:28 05/20/21 11:50 05/20/21 14:15 05/20/21 18:45 White Blood Count 9.0 x10^3/uL (4.0-11.0) Red Blood Count 4.88 x10^6/uL (4.30-5.70) Hemoglobin 15.1 g/dL (13.0-17.5) Hematocrit 43.5 % (39.0-53.0) Mean Corpuscular Volume 89 fL (79-100) Mean Corpuscular Hemoglobin 31 pg (25-35) Mean Corpuscular Hemoglobin Concent 35 g/dL (31-37) Red Cell Distribution Width 13.8 % (11.5-14.5) Platelet Count 198 x10^3/uL (140-400) Neutrophils (%) (Auto) 71 % (31-73) Lymphocytes (%) (Auto) 14 % (24-48) Monocytes (%) (Auto) 8 % (0-9) Eosinophils (%) (Auto) 6 % (0-3) Basophils (%) (Auto) 2 % (0-3) Neutrophils # (Auto) 6.3 x10^3/uL (1.8-7.7) Lymphocytes # (Auto) 1.3 x10^3/uL (1.0-4.8) Monocytes # (Auto) 0.7 x10^3/uL (0.0-1.1) Eosinophils # (Auto) 0.5 x10^3/uL (0.0-0.7) Basophils # (Auto) 0.1 x10^3/uL (0.0-0.2) D-Dimer (Roslyn) 0.29 ug/mlFEU (0.00-0.50) Sodium Level 144 mmol/L (136-145) Potassium Level 3.9 mmol/L (3.5-5.1) Chloride Level 104 mmol/L (98-107) Carbon Dioxide Level 30 mmol/L (21-32) Anion Gap 10 (6-14) Blood Urea Nitrogen 27 mg/dL (8-26) Creatinine 1.4 mg/dL (0.7-1.3) Estimated GFR (Cockcroft-Gault) 48.9 Glucose Level 148 mg/dL (70-99) Calcium Level 9.1 mg/dL (8.5-10.1) Troponin I Quantitative < 0.017 ng/mL (0.000-0.055) < 0.017 ng/mL (0.000-0.055) < 0.017 ng/mL (0.000-0.055) < 0.017 ng/mL (0.000-0.055) XP-Emd-T-Type Natriuretic Peptide 97 pg/mL (0-449) Triglycerides Level 149 mg/dL (0-150) Cholesterol Level 111 mg/dL (0-200) LDL Cholesterol, Calculated 39 mg/dL (0-100) VLDL Cholesterol, Calculated 30 mg/dL (0-40) Non-HDL Cholesterol Calculated 69 mg/dL (0-129) HDL Cholesterol 42 mg/dL (40-60) Cholesterol/HDL Ratio 2.6 Test 05/21/21 00:20 05/21/21 06:45 Troponin I Quantitative < 0.017 ng/mL (0.000-0.055) Sodium Level 143 mmol/L (136-145) Potassium Level 4.1 mmol/L (3.5-5.1) Chloride Level 106 mmol/L (98-107) Carbon Dioxide Level 31 mmol/L (21-32) Anion Gap 6 (6-14) Blood Urea Nitrogen 26 mg/dL (8-26) Creatinine 1.4 mg/dL (0.7-1.3) Estimated GFR (Cockcroft-Gault) 48.9 Glucose Level 129 mg/dL (70-99) Calcium Level 9.0 mg/dL (8.5-10.1) Laboratory Tests Test 05/20/21 11:50 05/20/21 14:15 05/20/21 18:45 05/21/21 00:20 Troponin I Quantitative < 0.017 ng/mL (0.000-0.055) < 0.017 ng/mL (0.000-0.055) < 0.017 ng/mL (0.000-0.055) < 0.017 ng/mL (0.000-0.055) Test 05/21/21 06:45 Sodium Level 143 mmol/L (136-145) Potassium Level 4.1 mmol/L (3.5-5.1) Chloride Level 106 mmol/L (98-107) Carbon Dioxide Level 31 mmol/L (21-32) Anion Gap 6 (6-14) Blood Urea Nitrogen 26 mg/dL (8-26) Creatinine 1.4 mg/dL (0.7-1.3) Estimated GFR (Cockcroft-Gault) 48.9 Glucose Level 129 mg/dL (70-99) Calcium Level 9.0 mg/dL (8.5-10.1) Brief Hospital Course Mr. Nolen is a 80 old male who presented with atypical chest pain. Consultation was placed to cardiology. Troponins trended and were <0.017 x 4. Echocardiogram showed normal left ventricular systolic function, normal left ventricular segmental wall motion, ejection fraction within normal range, 50-55%. Symptoms likely secondary to GERD. Per cardiology, he can be discharged home with plans for outpatient stress test. Discharge Information Condition at Discharge: Stable Follow Up: Weeks Disposition/Orders: D/C to Home Scheduled Aspirin (Children's Aspirin) 81 Mg Tab.chew, 81 TAB PO DAILY for cardiac for 30 Days, #9756 Ref 0 (Reported) Entered as Reported by: SCOOBY RIBERA on 05/20/211328 Last Action: Continued on 05/20/211335 by SCOOBY RIBERA Cholecalciferol (Vitamin D3) (Vitamin D3 ) 125 Mcg Capsule, 125 MCG PO DAILY for SUPPLEMENT, (Reported) 5,000 UNITS = 125 MCG Entered as Reported by: SCOOBY RIBERA on 05/20/211328 Last Action: Continued on 05/20/211335 by SCOOBY RIBERA Ezetimibe/Simvastatin (Vytorin 10-20 Mg Tablet) 1 Each Tablet, 1 TAB PO DAILY for cardiac for 30 Days, #30 Ref 0 (Reported) Entered as Reported by: SCOOBY RIBERA on 05/20/211328 Last Action: Converted on 05/20/211335 by SCOOBY RIBERA Fluticasone Propionate (Flonase Allergy Relief) 9.9 Ml Alzada.susp, 2 SPRAYS NS DAILY for sinus, (Reported) Entered as Reported by: SCOOBY RIBERA on 05/20/211328 Last Action: Converted on 05/20/211335 by SCOOBY RIBERA Gabapentin (Gabapentin) 600 Mg Tablet, 600 MG PO HS for NEUROGENIC PAIN, (Reported) Entered as Reported by: SCOOBY RIBERA on 05/20/211328 Last Action: Converted on 05/20/211335 by SCOOBY RIBERA Losartan/Hydrochlorothiazide (Losartan-Hctz 100-25 Mg Tab) 1 Each Tablet, 1 TAB PO DAILY for cardiac, #30 Ref 5 (Reported) Entered as Reported by: SCOOBY RIBERA on 05/20/211328 Last Action: Converted on 05/20/211335 by SCOOBY RIBERA Metformin Hcl (Metformin Hcl) 500 Mg Tablet, 500 MG PO DAILY for ANTI-DIABETIC, Ref 0 (Reported) Entered as Reported by: SCOOBY RIBERA on 05/20/211328 Last Action: Reviewed on 05/20/211335 by SCOOBY RIBERA Metoprolol Succinate (Metoprolol Succinate ( Xl )) 25 Mg Tab.er.24h, 2 TAB PO DAILY for cardiac, #30 Ref 5 (Reported) Entered as Reported by: SCOOBY RIBERA on 05/20/211328 Last Action: Continued on 05/20/211335 by SCOOBY RIBERA Multivitamin (Multi-Vitamin Daily) 1 Each Tablet, 1 TAB PO DAILY for splement for 30 Days, #30 Ref 0 (Reported) Entered as Reported by: SCOOBY RIBERA on 05/20/211328 Last Action: Converted on 05/20/211335 by SCOOBY RIBERA Pregabalin (Lyrica) 200 Mg Capsule, 2.5 CAP PO HS for neuropathy, #60 (Reported) Entered as Reported by: SCOOBY RIBERA on 7/5/21 1329 Last Action: Converted on 05/20/211335 by SCOOBY RIBERA Vitamin B Complex (B Complex) 1 Each Tablet, 1 TAB PO DAILY for suplement for 30 Days, #30 Ref 0 (Reported) Entered as Reported by: SCOOBY RIBERA on 05/20/211328 Last Action: Continued on 05/20/211335 by SCOOBY RIBERA Scheduled PRN Coffee/Theanine/Superoxide Dis (Neuriva De-Stress Capsule) 1 Each Capsule, 1 EACH PO PRN PRN for ANXIETY / AGITATION, (Reported) Entered as Reported by: SCOOBY RIBERA on 05/20/211328 Last Action: Edited on 05/20/211335 by SCOOBY RIBERA Naproxen Sodium (Aleve) 220 Mg Capsule, 220 MG PO PRN PRN for CHEST PAIN, (Reported) Entered as Reported by: SCOOBY RIBERA on 05/20/211328 Last Action: Converted on 05/20/211336 by SCOOBY RIBERA Justicifation of Admission Dx: Justifications for Admission: Justification of Admission Dx: Yes EVERETTE POLANCO MD May 21, 2021 11:47
[2021-05-21] MEDS ORDERED: OMEP20TA63 PO (12:54)
--- NOTE | 2021-05-21 13:08 | NUR ---
Discharge Note: TORREY MESA [address] Discharge instructions and discharge home medications reviewed with Patient and a copy given. All questions have been answered and understanding verbalized. The following instructions and handouts were given: Protonix, Chest pain, stress test. Patient discharged to home with via private vehicle. IV out, monitor off and placed at nursing station. Stress test instructions given to patient and .
[2021-05-22] MEDS ORDERED: PANTOPRAZOLE 40 MG TABLET.DR. PO SCH (07:30)
== END 2021-05-21 12:56 | disposition home or self-care (01) | DRG 392 ==
LOC: ER 08:19 → 2 SOUTH 10:22
PROVIDERS: ADMIT Family Medicine; ATTEND Family Medicine
DX: K21.9 Gastro-esophageal reflux disease without esophagitis (principal); I25.110 Atherosclerotic heart disease of native coronary artery with unstable angina pectoris; N17.9 Acute kidney failure, unspecified; R07.89 Other chest pain; E11.9 Type 2 diabetes mellitus without complications; E78.00 Pure hypercholesterolemia, unspecified; E78.5 Hyperlipidemia, unspecified; N18.9 Chronic kidney disease, unspecified; I12.9 Hypertensive chronic kidney disease with stage 1 through stage 4 chronic kidney disease, or unspecified chronic kidney disease; Z79.82 Long term (current) use of aspirin; Z79.84 Long term (current) use of oral hypoglycemic drugs; Z82.49 Family history of ischemic heart disease and other diseases of the circulatory system; Z95.5 Presence of coronary angioplasty implant and graft
CPT/HCPCS: 36415; 71045; 80048; 80061; 83880; 84484; 85025; 85379; 93005; 93306; 96360; J1644; J7040; 99285-25; G0378

== ENCOUNTER → 2021-05-24 | Outpatient (CLI) | payer MEDICARE ==
[2021-05-21 11:00] VITALS: BP 117/78
[~2021-05-24] MED LIST: ASPI81TA59 PO; CHOL5000 PO; COFF1CAP2 PO; EZET1TAB30 PO; FLUT9.9S NS; GABA600T7 PO; LOSA1TAB22 PO; METF500T16 PO; METO-239 PO; MULT-246 PO; NAPR220C4 PO; OMEP20TA63 PO; PREG200C PO; REGADENOSON 0.4 MG/5 ML DISP.SYRIN. IV ONE; VITA1TAB19 PO
--- NOTE | 2021-05-24 18:51 | RAD ---
MR#: [id number] Date of Study: 05/24/2021 Ordering Physician: TABBY BURGOS, Referring Physician: LO DENT Tech: RT Jarred (R) (N) APPROVED REPORT Test Type: Pharmacological Stress Nurse/Tech: Zoey Mooney RN Test Indications: Chest pain Cardiac History: Hypertension, Diabetes, 2 stents (2010) Medications: See Electronic Medical Record Medical History: See Electronic Medical Record Resting ECG: SR Resting Heart Rate: 60 bpm Resting Blood Pressure: 131/70mmHg Pretest Chest Pain: No chest pain Nurse/Tech Notes S1,S2 and lungs clear to auscultation. Consent: The procedure was explained to the patient in lay terms. Informed consent was witnessed. Wilfredo eout was entered into [employer]. History and Stress Test performed by CHRISTOPH Encarnacion Pharm. Details Pharmacologic stress testing was performed using 0.4mg per 5ml of regadenoson given intravenously ove r 7-10 seconds. Stress Symptoms Dyspnea,Nausea Chest pain typical of angina occurred (Severity 4/10 , 1 min duration). POST EXERCISE Reason for Termination: Infusion complete Target HR: No Max HR: 94 bpm Max Blood Pressure: 154/68mmHg Blood Pressure response to exercise: Normal blood pressure response during stress. Heart Rate response to exercise: WNL Chest Pain: Yes. see note above. stated it was pressure. Arrhythmia: No. ST Change: No. INTERPRETATION Stress EKG Conclusion: No evidence of stress induced EKG changes. Imaging Protocol IMAGE PROTOCOL: Rest Tc-99m/stress Tc-99m 1 day Rest: Stress: Viability: Radiopharm.Tc99m [id number] Sestamibi Dose9.7mCi 31mCi Duration 13min. 13min. Img Date 05/24/2021 05/24/2021 Inj-Img Cepu96umw. 60min. Rest Admin Site:IV - Left AntecubitalAdministrator:RT Brian (R)(N) Stress Admin Site: IV - Left AntecubitalAdministrator: CHRISTOPH Encarnacion STRESS DATA End Diast. Vol.101.0mlLVEDV index BSA48.0ml End Syst. Vol.35.0mlLVESV index BSA17.0ml Myocardial Frdh601.0gEject. Dcjiqdsm71.0% Stress Scores Regional WT0.00Summed WT1.00 Regional WM0.00Summed WM1.00 LV Perfusion There is a moderate to large size fully reversible moderate to severe in intensity basal to distal in ferior wall defect consistent with ischemia in the RCA territory. Wall Motion Normal LV systolic function ejection fraction of 60%. LV Perf. Quant 17 Seg. SSS9.00 17 Seg. SRS1.00 17 Seg. SDS8.00 Stress Defect Extent (% LAD)1.30Rest Defect Extent (% LAD)0.00Rev. Defect Extent (% LAD)1.30 Stress Defect Extent (% LCX) 52.50Rest Defect Extent (% LCX)0.00Rev. Defect Extent (% LCX)35.00 Stress Defect Extent (% RCA)15.60Rest Defect Extent (% RCA)0.00Rev. Defect Extent (% RCA)15.60 Stress Defect Extent (% HENRRY)20.00Rest Defect Extent (% HENRRY)0.00Rev. Defect Extent (% HENRRY)17.00 Other Information Quality:Average Risk Assessment: Moderate Risk Conclusion 1. No evidence of stress-induced EKG changes 2. Reversible inferior wall defect consistent with ischemia in the RCA territory 3. Normal LV systolic function with ejection fraction of 65% 4. Moderate risk study. Recommendations Consider cardiac catheterization. Signed by : Tabby Burgos, Electronically Approved : 05/24/2021 18:50:48
== END ==
LOC: NM 09:45
PROVIDERS: ATTEND Internal Medicine Cardiovascular Disease
DX: R07.9 Chest pain, unspecified (principal)
CPT/HCPCS: 78452; 93017; A9500; J2785

== ENCOUNTER 2022-03-16 21:13 | Emergency (ER) | payer BC, MEDICARE ==
[~2022-03-16] VITALS: Ht 172.7 cm; Wt 93.6 kg
[~2022-03-16 21:13] MED LIST changes: -REGADENOSON 0.4 MG/5 ML DISP.SYRIN. IV ONE
[2022-03-16] MEDS ORDERED: valACYclovir 500 MG TABLET. PO STA (21:29)
--- NOTE | 2022-03-16 21:39 | PHYS DOC ---
Past Medical History Past Medical History: CAD, Diabetes-Type II, High Cholesterol, Heart Disease, Hypertension Past Surgical History: Other Additional Past Surgical Histo: HERNIA,X2 CARPEL TUNNEL,X2 CARDIAC STENTS IN 2010 Smoking Status: Former Smoker Alcohol Use: None General Adult EDM: Chief Complaint: ABDOMINAL PAIN HPI: HPI: Patient is a 81 year old male who presented to ER for evaluation of right upper quad abdominal pain that been going on for 4 days. Patient also complained of slight headache on the right side today. Patient denies any cough or fever, no chest pain, no trouble breathing. Patient has history of coronary artery disease hypertension, diabetic. He also has history of prostate cancer that he finished treatment a long time ago. Patient denies any urinary symptom, denies any constipation or diarrhea problem. Review of Systems: Review of Systems: Constitutional: Denies fever or chills. [] Eyes: Denies change in visual acuity. [] HENT: Denies nasal congestion or sore throat. [] Respiratory: Denies cough or shortness of breath. [] Cardiovascular: Denies chest pain or edema. [] GI: Positive for right side abdominal pain, no nausea vomiting, no diarrhea : Denies dysuria. [] Musculoskeletal: Denies back pain or joint pain. [] Integument: Denies rash. [] Neurologic: Denies headache, focal weakness or sensory changes. [] Endocrine: Denies polyuria or polydipsia. [] Lymphatic: Denies swollen glands. [] Psychiatric: Denies depression or anxiety. [] Heart Score: C/O Chest Pain: N/A Risk Factors: Risk Factors: DM, Current or recent (<one month) smoker, HTN, HLP, family history of CAD, obesity. Risk Scores: Score 0 - 3: 2.5% MACE over next 6 weeks - Discharge Home Score 4 - 6: 20.3% MACE over next 6 weeks - Admit for Clinical Observation Score 7 - 10: 72.7% MACE over next 6 weeks - Early Invasive Strategies Current Medications: Current Medications Medications (Trade) Dose Ordered Sig/Darrin Start Time Stop Time Status Last Admin Dose Admin Morphine Sulfate (Morphine Sulfate) 4 mg 1X ONCE 03/16/22 21:45 03/16/22 21:46 Ondansetron HCl (Zofran) 4 mg 1X ONCE 03/16/22 21:45 03/16/22 21:46 Valacyclovir HCl (Valtrex) 1,000 mg 1X STAT 03/16/22 21:29 03/16/22 21:31 DC Allergies: Allergies: Allergies Coded Allergies Type Severity Reaction Last Updated Verified No Known Drug Allergies 05/20/21 No Physical Exam: PE: Constitutional: Well developed, well nourished, no acute distress, non-toxic appearance. [] HENT: Normocephalic, atraumatic, bilateral external ears normal, oropharynx moist, no oral exudates, nose normal. [] Eyes: PERRLA, EOMI, conjunctiva normal, no discharge. [] Neck: Normal range of motion, no tenderness, supple, no stridor. [] Cardiovascular:Heart rate regular rhythm, no murmur [] Lungs & Thorax: Bilateral breath sounds clear to auscultation [] Abdomen: Bowel sounds normal, soft, There is tenderness in RUQ , no masses, no p ulsatile masses. [] Skin: Warm, dry. There is crusted lesions on right lower back area, crossing to right lower abdomen area, not crossing midline. Back: No tenderness, no CVA tenderness. [] Extremities: No tenderness, no cyanosis, no clubbing, ROM intact, no edema. [] Neurologic: Alert and oriented X 3, normal motor function, normal sensory function, no focal deficits noted. [] Psychologic: Affect normal, judgement normal, mood normal. [] Current Patient Data: Labs: Laboratory Tests Test 03/16/22 21:34 03/16/22 22:32 Urine Collection Type Unknown Urine Color (Auto) Light yellow Urine Turbidity Clear Urine pH (Auto) 5.5 Urine Specific [place] 1.021 Urine Protein (Auto) Negative mg/dL Urine Glucose (Auto)(UA) >=1000 mg/dL Urine Ketones (Auto) Negative mg/dL Urine Blood (Auto) Negative Urine Nitrite Negative Urine Bilirubin (Auto) Negative Urine Urobilinogen (Auto) Normal mg/dL Urine Leukocyte Esterase (Auto) Negative Urine RBC 0 /HPF Urine WBC 0 /HPF Urine Bacteria 0 /HPF White Blood Count 9.7 x10^3/uL Red Blood Count 4.93 x10^6/uL Hemoglobin 15.3 g/dL Hematocrit 43.6 % Mean Corpuscular Volume 88 fL Mean Corpuscular Hemoglobin 31 pg Mean Corpuscular Hemoglobin Concent 35 g/dL Red Cell Distribution Width 13.8 % Platelet Count 173 x10^3/uL Neutrophils (%) (Auto) 75 % Lymphocytes (%) (Auto) 13 % Monocytes (%) (Auto) 9 % Eosinophils (%) (Auto) 2 % Basophils (%) (Auto) 1 % Neutrophils # (Auto) 7.3 x10^3/uL Lymphocytes # (Auto) 1.3 x10^3/uL Monocytes # (Auto) 0.8 x10^3/uL Eosinophils # (Auto) 0.2 x10^3/uL Basophils # (Auto) 0.1 x10^3/uL Sodium Level 141 mmol/L Potassium Level 3.6 mmol/L Chloride Level 104 mmol/L Carbon Dioxide Level 25 mmol/L Anion Gap 12 Blood Urea Nitrogen 33 mg/dL Creatinine 1.6 mg/dL Estimated GFR (Cockcroft-Gault) 41.8 BUN/Creatinine Ratio 21 Glucose Level 138 mg/dL Calcium Level 9.1 mg/dL Total Bilirubin 0.5 mg/dL Aspartate Amino Transf (AST/SGOT) 33 U/L Alanine Aminotransferase (ALT/SGPT) 39 U/L Alkaline Phosphatase 115 U/L Troponin I High Sensitivity 12 ng/L MN-Ari-V-Type Natriuretic Peptide 268 pg/mL Total Protein 6.5 g/dL Albumin 3.5 g/dL Albumin/Globulin Ratio 1.2 Lipase 16 U/L Current Medications Medications (Trade) Dose Ordered Sig/Darrin Route PRN Reason Start Time Stop Time Status Last Admin Dose Admin Valacyclovir HCl (Valtrex) 1,000 mg 1X STAT PO 03/16/22 21:29 03/16/22 21:31 DC 03/16/22 22:27 Morphine Sulfate (Morphine Sulfate) 4 mg 1X ONCE IVP 03/16/22 21:45 03/16/22 21:46 DC 03/16/22 22:26 Ondansetron HCl (Zofran) 4 mg 1X ONCE IVP 03/16/22 21:45 03/16/22 21:46 DC 03/16/22 22:27 EKG: EKG: [] Radiology/Procedures: Radiology/Procedures: [][facility] [address] [place] [address] IMAGING REPORT Signed PATIENT: TORREY MESA ACCOUNT: [id number] : 1940 LOCATION: ER AGE: 81 SEX: M EXAM STATUS: REG ER ORD. PHYSICIAN: GIGI YAP DO REASON: RUQ ABDOMINAL PAIN PROCEDURE: ABDOMEN LTD INDICATION: Reason: RUQ ABDOMINAL PAIN / Spl. Instructions: / History: COMPARISON: None. TECHNIQUE: Grayscale and color ultrasound images obtained through the abdomen. FINDINGS: Pancreas: Not well seen secondary to bowel gas Liver: Echogenic which can be seen with fatty infiltration. Portions were obscured by overlying structures. Gallbladder: Wall measures up to about 3 mm. Somewhat distended at time of exam measuring up to 79 mm. Well-defined stone not seen. Common Bile Duct: Not dilated. Right Kidney: No hydronephrosis. Aorta/IVC: Limited visualization secondary to bowel gas IMPRESSION: * Gallbladder somewhat distended at time of exam with the gallbladder wall measuring borderline in thickness. No definite stones seen. Electronically signed by: Carmina Monaco MD (03/16/2022 11:24 PM) [id number] DICTATED and SIGNED BY: CARMINA MONACO MD DATE: 03/16/22 [facility] [address] [place], [place] [id number] IMAGING REPORT Signed PATIENT: TORREY MESA ACCOUNT: [id number] : 1940 LOCATION: ER AGE: 81 SEX: M EXAM STATUS: REG ER ORD. PHYSICIAN: GIGI YAP DO REASON: FLANK PAIN PROCEDURE: CT ABDOMEN PELVIS WO CONTRAST INDICATION: Reason: FLANK PAIN / Spl. Instructions: / History: COMPARISON: Ultrasound earlier same day TECHNIQUE: Axial CT images were obtained through the abdomen and pelvis without intravenous contrast. One or more of the following individualized dose reduction techniques were utilized for this examination: 1. Automated exposure control; 2. Adjustment of the mA and/or kV according to patient size; 3. Use of iterative reconstruction technique. FINDINGS: Linear opacity at the left lung base could be from scarring or atelectasis. Partial visualization of coronary artery calcific atherosclerosis. Right axillary lymph node borderline in size measuring 10 mm. Vascular: Severe calcific atherosclerosis. Fat containing left greater than right inguinal hernia. Hepatobiliary: No intrahepatic bile duct dilation. Gallbladder somewhat distended. Pancreas: Fatty atrophy. Spleen: Spleen unremarkable. Renal/Bladder: Urinary bladder is partially distended with some mild prominence of the wall. Mild indistinctness of the fat adjacent to the bilateral extrarenal pelvis. Suspected cystic lesion left kidney. Lobulated contour of kidneys. Limited assessment for solid lesions secondary to lack of intravenous contrast. Gastrointestinal: Colonic diverticulosis. Portion of the abdomen is outside of the field of view. No periappendiceal inflammatory changes. Degenerative changes of the spine with multilevel central canal and neural foraminal stenosis. Grade 1 anterolisthesis of L4 on L5. 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 Degenerative changes hips. IMPRESSION: * There is some mild prominence of the urinary bladder wall as well as some subtle haziness in the fat adjacent to the bilateral renal pelvis. Correlate with symptoms since causes such as mild urinary tract infection could have this appearance. This is a very mild finding. * No evidence of bowel obstruction or appendicitis. * Severe atherosclerotic disease Electronically signed by: Carmina Monaco MD (03/17/2022 12:52 AM) [id number] DICTATED and SIGNED BY: CARMINA MONACO MD DATE: 03/17/2242 Course & Med Decision Making: Course & Med Decision Making Pertinent Labs and Imaging studies reviewed. (See chart for details) Patient is an 81-year-old male who presented to ER for evaluation of flank pain, and headache. CT scan of the abdomen pelvis did not show any acute problem, ultrasound of the gallbladder did not show any acute problem. Patient actually had rash on the right lower back that across his right lower quadrant area, did not cross midline, consistent with shingles. Patient was given Valtrex and pain medication in ER, patient was discharged home with a prescription for Valtrex and [place]. Patient is to follow-up with his doctor for reevaluation. Melisa Disclaimer: Melisa Disclaimer: This electronic medical record was generated, in whole or in part, using a voice recognition dictation system. Departure Departure Impression: Primary Impression: Shingles Additional Impression: Flank pain Disposition: 01 HOME / SELF CARE / HOMELESS Condition: STABLE Referrals: NO PCP (PCP) Follow up with your doctor in 2 days for reevaluation. Patient Instructions: Flank Pain, Shingles Additional Instructions: Thank you for visiting our Emergency Department. We appreciate you trusting us with your care. If any additional problems come up don't hesitate to return to visit us. Please follow up with your primary care provider so they can plan additional care if needed and know about the problem that you had. If symptoms worsen come back to the Emergency Department. Any concerning symptoms that start such as chest pain, shortness of air, weakness or numbness on one side of the body, running high fevers or any other concerning symptoms return to the ER. Scripts Hydrocodone Bit/Acetaminophen (HYDROCODONE-APAP 5-325 ) 1 Tab Tablet 1 TAB PO PRN Q6HRS PRN for PAIN, #20 TAB 0 Refills Prov: GIGI YAP DO 03/17/22 Valacyclovir Hcl (VALTREX) 1,000 Mg Tablet 1 TAB PO TID for 10 Days, #30 TAB Prov: GIGI YAP DO 03/17/22 GIGI YAP DO March 16, 2022 21:39
[2022-03-16] MEDS ORDERED: MORPHINE SULFATE 4 MG/ML INJ. IVP ONE (21:45)
[2022-03-16] MEDS ORDERED: ONDANSETRON PF 4 MG/2 ML VIAL. IVP ONE (21:45)
[2022-03-16 21:51] LABS: BACTERIA,URINE 0 /HPF (0-FEW); RBC,URINE 0 /HPF (0-2); WBC,URINE 0 /HPF (0-4)
[2022-03-16 22:43] LABS: BASO # 0.1 x10^3/uL (0.0-0.2); BASO % 1 % (0-3); EOS # 0.2 x10^3/uL (0.0-0.7); EOS % 2 % (0-3); HEMATOCRIT 43.6 % (39.0-53.0); HEMOGLOBIN 15.3 g/dL (13.0-17.5); LYMPH # 1.3 x10^3/uL (1.0-4.8); LYMPH % 13 % (24-48); MEAN CORPUSCULAR HEMOGLOBIN 31 pg (25-35); MEAN CORPUSCULAR HGB CONC 35 g/dL (31-37); MEAN CORPUSCULAR VOLUME 88 fL (79-100); MONO # 0.8 x10^3/uL (0.0-1.1); MONO % 9 % (0-9); NEUT # 7.3 x10^3/uL (1.8-7.7); NEUT % 75 % (31-73); PLATELET COUNT 173 x10^3/uL (140-400); RED BLOOD COUNT 4.93 x10^6/uL (4.30-5.70); RED CELL DISTRIBUTION WIDTH 13.8 % (11.5-14.5); WHITE BLOOD COUNT 9.7 x10^3/uL (4.0-11.0)
[2022-03-16 22:59] LABS: CALCIUM 9.1 mg/dL (8.5-10.1); CREATININE 1.6 mg/dL (0.7-1.3); GFR 41.8; POTASSIUM 3.6 mmol/L (3.5-5.1)
[2022-03-16 23:03] LABS: ALBUMIN 3.5 g/dL (3.4-5.0); ALBUMIN/GLOBULIN RATIO 1.2 (1.0-1.7); TOTAL BILIRUBIN 0.5 mg/dL (0.2-1.0); TOTAL PROTEIN 6.5 g/dL (6.4-8.2)
--- NOTE | 2022-03-16 23:26 | RAD ---
INDICATION: Reason: RUQ ABDOMINAL PAIN / Spl. Instructions: / History: COMPARISON: None. TECHNIQUE: Grayscale and color ultrasound images obtained through the abdomen. FINDINGS: Pancreas: Not well seen secondary to bowel gas Liver: Echogenic which can be seen with fatty infiltration. Portions were obscured by overlying struc tures. Gallbladder: Wall measures up to about 3 mm. Somewhat distended at time of exam measuring up to 79 mm . Well-defined stone not seen. Common Bile Duct: Not dilated. Right Kidney: No hydronephrosis. Aorta/IVC: Limited visualization secondary to bowel gas IMPRESSION: * Gallbladder somewhat distended at time of exam with the gallbladder wall measuring borderline in t hickness. No definite stones seen. Electronically signed by: Vinay Monaco MD (03/16/2022 11:24 PM) [id number]
--- NOTE | 2022-03-17 00:54 | RAD ---
INDICATION: Reason: FLANK PAIN / Spl. Instructions: / History: COMPARISON: Ultrasound earlier same day TECHNIQUE: Axial CT images were obtained through the abdomen and pelvis without intravenous contrast. One or more of the following individualized dose reduction techniques were utilized for this examinat ion: 1. Automated exposure control; 2. Adjustment of the mA and/or kV according to patient size; 3 . Use of iterative reconstruction technique. FINDINGS: Linear opacity at the left lung base could be from scarring or atelectasis. Partial visualization of coronary artery calcific atherosclerosis. Right axillary lymph node borderline in size measuring 10 m m. Vascular: Severe calcific atherosclerosis. Fat containing left greater than right inguinal hernia. Hepatobiliary: No intrahepatic bile duct dilation. Gallbladder somewhat distended. Pancreas: Fatty atrophy. Spleen: Spleen unremarkable. Renal/Bladder: Urinary bladder is partially distended with some mild prominence of the wall. Mild ind istinctness of the fat adjacent to the bilateral extrarenal pelvis. Suspected cystic lesion left kidn ey. Lobulated contour of kidneys. Limited assessment for solid lesions secondary to lack of intraveno us contrast. Gastrointestinal: Colonic diverticulosis. Portion of the abdomen is outside of the field of view. No periappendiceal inflammatory changes. Degenerative changes of the spine with multilevel central canal and neural foraminal stenosis. Grade 1 anterolisthesis of L4 on L5. 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 Degenerative changes hips. IMPRESSION: * There is some mild prominence of the urinary bladder wall as well as some subtle haziness in the fat adjacent to the bilateral renal pelvis. Correlate with symptoms since causes such as mild urinary tract infection could have this appearance. This is a very mild finding. * No evidence of bowel obstruction or appendicitis. * Severe atherosclerotic disease Electronically signed by: Vinay Monaco MD (03/17/2022 12:52 AM) [id number]
[2022-03-17] MEDS ORDERED: VALA10005 PO (01:05)
[2022-03-17] MEDS ORDERED: HYDR-2761 PO (01:05)
[2022-03-17 01:20] VITALS: BP 142/76
--- NOTE | 2022-03-17 05:52 | EKG ---
[facility] [address] [place] [address] Test Date: 2022-03-16 Test Time: 22:10:48 Pat Name: TORREY MESA Department: Room: Gender: M Sap Senior Developer: [id number] : 1940 Requested By: GIGI YAP Order Number: [id number] Reading MD: Soy Burgos MD Measurements Intervals [place] Rate: 70 P: 48 GA: 154 QRS: 27 QRSD: 88 T: 14 QT: 374 QTc: 407 Interpretive Statements SINUS RHYTHM Electronically Signed On 03-24-2022 9:48:28 CDT by Soy Burgos MD
== END 2022-03-17 01:25 | disposition home or self-care (01) ==
LOC: ER 21:13
DX: R10.11 Right upper quadrant pain (principal); B02.9 Zoster without complications; R51.9 Headache, unspecified; I11.9 Hypertensive heart disease without heart failure; E78.00 Pure hypercholesterolemia, unspecified; E11.9 Type 2 diabetes mellitus without complications; I25.10 Atherosclerotic heart disease of native coronary artery without angina pectoris; Z87.891 Personal history of nicotine dependence; Z95.5 Presence of coronary angioplasty implant and graft
CPT/HCPCS: 36415; 74176; 76705; 80053; 81001; 83690; 83880; 84484; 85025; 93005; 96374; 96375; 99285; J2270; J2405; 99284-25